=== PATIENT | male | born 1960 | race Caucasian/White ===

== ENCOUNTER 2022-11-17 11:23 | Inpatient (IN) | payer OTHER ==
[2022-11-17 12:26] VITALS: BMI 26.9
[2022-11-17] MEDS ORDERED: IBUPROFEN 400 MG TABLET (FP) PO PRN (14:20)
[2022-11-17] MEDS ORDERED: methaDONE HCL 10 MG TABLET (FOR DETOX USE ONLY) PO ONE (14:20)
[2022-11-17] MEDS ORDERED: BENZOCAINE/MENTHOL (CHLORASEPTIC ) LOZENGE MM PRN (14:20)
[2022-11-17] MEDS ORDERED: POLYETHYLENE GLYCOL (HEALTHYLAX) 3350 17 GM PACKET PO PRN (14:20)
[2022-11-17] MEDS ORDERED: guaiFENesin 600 MG TABLET.ER (FP) PO PRN (14:20)
[2022-11-17] MEDS ORDERED: ONDANSETRON *ODT* 4 MG TABLET SL PRN (14:20)
[2022-11-17] MEDS ORDERED: NALOXONE HCL (KLOXXADO) 8 MG SPRAY NS PRN (14:20)
[2022-11-17] MEDS ORDERED: DICYCLOMINE HCL 10 MG CAPSULE PO PRN (14:20)
[2022-11-17] MEDS ORDERED: hydrOXYzine PAMOATE 25 MG CAPSULE (FP) PO PRN (14:20)
[2022-11-17] MEDS ORDERED: NICOTINE 10 MG CARTRIDGE (INHALER) IH PRN (14:20)
[2022-11-17] MEDS ORDERED: MAG HYDROX/AL HYDROX/SIMETH 30 ML UNIT-DOSE CUP PO PRN (14:20)
[2022-11-17] MEDS ORDERED: BISMUTH SUBSALICYLATE 524 MG/30 ML PO PRN (14:20)
[2022-11-17] MEDS ORDERED: MAGNESIUM HYDROX 2400MG/30ML ORAL SUSPENSION 30 ML CUP PO PRN (14:20)
[2022-11-17] MEDS ORDERED: LOPERAMIDE HCL 2 MG CAPSULE PO PRN (14:20)
[2022-11-17] MEDS ORDERED: ACETAMINOPHEN 325 MG TABLET (FP) PO PRN (14:20)
[2022-11-17] MEDS ORDERED: BENZONATATE 200 MG CAPSULE PO PRN (14:20)
[2022-11-17] MEDS ORDERED: cloNIDine HCL 0.1 MG TABLET PO PRN (14:20)
[2022-11-17] MEDS ORDERED: NALOXONE HCL 0.4 MG/ML VIAL IM PRN (14:20)
[2022-11-17] MEDS ORDERED: NICOTINE 21 MG/24 HOURS TOPICAL PATCH ONE (14:46)
[2022-11-17] MEDS ORDERED: methaDONE HCL 10 MG TABLET (FOR DETOX USE ONLY) ONE (14:47)
[2022-11-17] MEDS: NICOTINE 21 MG/24 HOURS TOPICAL PATCH TD SCH (14:53)
[2022-11-17] MEDS: diazePAM 5 MG TABLET PO SCH ×2 (17:48→22:17)
[2022-11-17] MEDS ORDERED: MELATONIN 5 MG TABLETS PO SCH (22:00)
[2022-11-17] MEDS: THIAMINE HCL 100 MG TABLET (FP) PO SCH (22:16)
[2022-11-17] MEDS: METHOCARBAMOL 500 MG TABLET PO PRN (22:16)
[2022-11-18] MEDS: diazePAM 5 MG TABLET PO SCH ×4 (05:18→22:38)
[2022-11-18 10:14] LABS: POTASSIUM 4.8 mmol/L (3.5-5.1)
[2022-11-18 10:15] LABS: HEMATOCRIT 45.1 % (35.4-49); HEMOGLOBIN 14.9 GM/dL (11.7-16.9); MCH 29.8 pg (25.7-33.7); MEAN CELL VOLUME 90.4 fl (80-96); MEAN PLT VOLUME 8.8 fl (7.5-11.1); PLATELET COUNT 204 10^3/uL (134-434); RBC 4.99 M/mm3 (4.00-5.60); RDW 14.5 % (11.9-15.9); WHITE BLOOD COUNT 7.3 K/mm3 (4.0-10.0)
[2022-11-18 10:16] LABS: ALBUMIN 3.3 g/dl (3.4-5.0)
[2022-11-18 10:17] LABS: BLOOD UREA NITROGEN 15.3 mg/dL (7-18)
[2022-11-18 10:19] LABS: CREATININE 0.8 mg/dL (0.55-1.3)
[2022-11-18 10:21] LABS: BILIRUBIN,TOTAL 0.4 mg/dL (0.2-1); TOT PROT 7.2 g/dl (6.4-8.2)
[2022-11-18] MEDS: TAMSULOSIN HCL 0.4 MG CAP PO SCH (10:23)
[2022-11-18] MEDS: BICTEGRAV/EMTRICIT/TENOFOV (BIKTARVY) 50-200-25 MG TABLET PO SCH (10:23)
[2022-11-18] MEDS: NICOTINE 21 MG/24 HOURS TOPICAL PATCH TD SCH (10:23)
[2022-11-18] MEDS: PRENATAL VITAMINS W/ FOLIC ACID TABLET (FP) PO SCH (10:25)
[2022-11-18] MEDS: THIAMINE HCL 100 MG TABLET (FP) PO SCH (22:38)
[2022-11-18] MEDS: MELATONIN 5 MG TABLETS PO SCH (22:38)
[2022-11-19] MEDS: diazePAM 5 MG TABLET PO SCH ×3 (05:22→22:16)
[2022-11-19] MEDS ORDERED: methaDONE HCL 10 MG TABLET (FOR DETOX USE ONLY) PO ONE (10:00)
[2022-11-19] MEDS: PRENATAL VITAMINS W/ FOLIC ACID TABLET (FP) PO SCH (10:14)
[2022-11-19] MEDS: TAMSULOSIN HCL 0.4 MG CAP PO SCH (10:14)
[2022-11-19] MEDS: BICTEGRAV/EMTRICIT/TENOFOV (BIKTARVY) 50-200-25 MG TABLET PO SCH (10:14)
[2022-11-19] MEDS: NICOTINE 21 MG/24 HOURS TOPICAL PATCH TD SCH (10:16)
[2022-11-19] MEDS: diazePAM 5 MG TABLET PO PRN ×2 (11:34→20:00)
[2022-11-19] MEDS: IBUPROFEN 600 MG TABLET (FP) PO PRN (19:56)
[2022-11-19 19:57] LABS: PH,URINE 6.5 (5.0-8.0); URINE APPEARANCE CLEAR; URINE BILIRUBIN NEGATIVE (NEGATIVE); URINE COLOR YELLOW; URINE GLUCOSE (UA) NEGATIVE (NEGATIVE); URINE KETONE NEGATIVE (NEGATIVE); URINE LEUK ESTERASE NEGATIVE (NEGATIVE); URINE NITRITE NEGATIVE (NEGATIVE); URINE PROTEIN TRACE (NEGATIVE)
[2022-11-19] MEDS: MELATONIN 5 MG TABLETS PO SCH (22:16)
[2022-11-19] MEDS: THIAMINE HCL 100 MG TABLET (FP) PO SCH (22:16)
[2022-11-19] MEDS: METHOCARBAMOL 500 MG TABLET PO PRN (22:16)
[2022-11-20] MEDS: diazePAM 5 MG TABLET PO PRN ×2 (02:43→10:13)
[2022-11-20] MEDS: diazePAM 5 MG TABLET PO SCH ×2 (05:46→17:24)
[2022-11-20] MEDS: TAMSULOSIN HCL 0.4 MG CAP PO SCH (10:12)
[2022-11-20] MEDS: BICTEGRAV/EMTRICIT/TENOFOV (BIKTARVY) 50-200-25 MG TABLET PO SCH (10:12)
[2022-11-20] MEDS: PRENATAL VITAMINS W/ FOLIC ACID TABLET (FP) PO SCH (10:12)
[2022-11-20] MEDS: IBUPROFEN 600 MG TABLET (FP) PO PRN (10:14)
[2022-11-20] MEDS: NICOTINE 21 MG/24 HOURS TOPICAL PATCH TD SCH (10:16)
[2022-11-20] MEDS ORDERED: cloNIDine HCL 0.1 MG TABLET PO ONE (12:39)
[2022-11-20 21:07] VITALS: RESP 16
[2022-11-20] MEDS: MELATONIN 5 MG TABLETS PO SCH (22:38)
[2022-11-20] MEDS: METHOCARBAMOL 500 MG TABLET PO PRN (22:38)
[2022-11-20] MEDS: THIAMINE HCL 100 MG TABLET (FP) PO SCH (22:39)
[2022-11-21] MEDS ORDERED: diazePAM 5 MG TABLET PO ONE (06:00)
[2022-11-21] MEDS: NICOTINE 21 MG/24 HOURS TOPICAL PATCH TD SCH (09:11)
[2022-11-21] MEDS: BICTEGRAV/EMTRICIT/TENOFOV (BIKTARVY) 50-200-25 MG TABLET PO SCH (09:11)
[2022-11-21] MEDS: PRENATAL VITAMINS W/ FOLIC ACID TABLET (FP) PO SCH (09:11)
[2022-11-21] MEDS: TAMSULOSIN HCL 0.4 MG CAP PO SCH (09:11)
[2022-11-21] MEDS: METHOCARBAMOL 500 MG TABLET PO PRN (09:15)
[2022-11-21 09:17] VITALS: BP 150/95; PULSE 108; TEMP 97.7
[2022-11-21] MEDS ORDERED: methaDONE HCL 10 MG TABLET (FOR DETOX USE ONLY) PO ONE (10:00)
== END 2022-11-21 11:40 | disposition home or self-care (01) | DRG 773 ==
LOC: YASAS 11:23 → Y3N 14:06
PROVIDERS: ADMIT Allergy & Immunology; ATTEND Surgery
PROC: HZ2ZZZZ Detoxification Services for Substance Abuse Treatment (ICD-10-PCS; principal; 2022-11-17)
DX: F11.23 Opioid dependence with withdrawal (principal); F13.230 Sedative, hypnotic or anxiolytic dependence with withdrawal, uncomplicated; F17.210 Nicotine dependence, cigarettes, uncomplicated; F19.282 Other psychoactive substance dependence with psychoactive substance-induced sleep disorder; F41.9 Anxiety disorder, unspecified; Z21 Asymptomatic human immunodeficiency virus [HIV] infection status; H91.93 Unspecified hearing loss, bilateral; N40.0 Benign prostatic hyperplasia without lower urinary tract symptoms; R60.0 Localized edema; L81.8 Other specified disorders of pigmentation; R26.89 Other abnormalities of gait and mobility; Z99.89 Dependence on other enabling machines and devices; Z88.0 Allergy status to penicillin
CPT/HCPCS: 36415; 80053; 81003; 85027; 86780; 87635; 87811; 93005; 93010